=== PATIENT | female | born 1975 | race Caucasian/White ===

== ENCOUNTER 2023-06-02 00:32 | Day surgery (SDC) | payer OTHER, SELFPAY ==
[2023-05-23 14:48] VITALS: BMI 21.5
[2023-06-02 09:52] VITALS: BP 108/71; PULSE 77; RESP 18; TEMP 36.7; O2SAT 100
[2023-06-02] MEDS: LACTATED RINGERS 1,000 ML 150 ML IV CONT (10:11)
--- NOTE | 2023-06-02 10:32 | WPDANESEPPF ---
Anes - Initial Pre Proc Eval Procedure: Operation Date: 06/02/23 11:00 Proposed Procedures p Screening Colonoscopy - Kevin Parr MD Date/Time: 06/02/23 10:32 Surgeon: Kevin Parr MD Pre Op Diagnosis: neoplasm screening Patient Data Age: 48 Gender: F Height: 1.52 m Weight: 51 kg Last Vital Signs Temp 98.1 F 06/02/23 09:52 Pulse 77 06/02/23 09:52 Resp 18 06/02/23 09:52 BP 108/71 06/02/23 09:52 Pulse Ox 100 06/02/23 09:52 O2 Del Method Room Air 06/02/23 09:52 Allergies Allergy/AdvReac Type Severity Reaction Status Date / Time No Known Allergies Allergy Verified 06/02/23 09:51 Home Medications Medication Instructions Recorded Confirmed Type cetirizine 10 mg tablet (Zyrtec) 10 mg PO DAILY PRN Allergic 06/26/21 05/23/23 History Symptoms ibuprofen 400 mg tablet 400 mg PO Q6H 06/26/21 05/23/23 History Laboratory Tests 06/02/23 10:02 Serum HCG, Qual Pending Patient hx anesthesia problems: none Family hx anesthesia problems: none Results Review: All pre-operative results and documents have been reviewed as part of the pre-operative evaluation. FORMERLY [facility], [facility]1983 Past Medical History Medical History Radial scar of breast Family History Family History Mother Patient's mother is in good health Father Patient's father is in good health Sibling Patient's brother is in good health Social History Social History Smoking status: Never smoker Second hand tobacco smoke exposure: No Smoking end date: 08/18/00 Alcohol intake: current Alcohol use details: Socially Substance use: unknown Substance use type: does not use Lack of Transportation: No Lack of Food: Never True Current Housing: I Have Housing Concerned About Future Housing: No Difficulty Paying Gas/Electric Bills: No Difficulty Paying for Meds: No Currently Unemployed: No Education: Master's Degree or Higher Difficulty w/ Childcare or Family Care: No Living arrangements: other Additional living arrangements comments: with dayne Toscano Final PreProcedure Day of Procedure 06/02/23 10:32 Patient weight: normal Heart: regular rate and rhythm Lungs: clear to auscultation Airway: Mallampati scale class II Neurological: alert and oriented Last oral intake: >/= 8 hours ASA classification: II Emergent: no Anesthetic plan: proceed Anesthesia type and monitoring: general GIVS and standard monitoring Results Review: All pre-operative results and documents have been reviewed as part of the pre-operative evaluation. Informed Consent: The patient's anesthetic plan and its attendant risks and benefits were discussed with the patient/family/POA. Questions were solicited and answers provided to the satisfaction of the patient/family/POA.
[2023-06-02 10:41] LABS: SPREG INTERNAL CONTROL Positive; Serum Qual hCG Negative
--- NOTE | 2023-06-02 11:08 | PM.HPGS ---
History of Present Illness History of Present Illness Consent: Risks, benefits, and alternatives have been discussed and questions answered. Patient agrees to proceed with procedure. Chief complaint: neoplasm screening Narrative: Gloria Haines is a 48 year old female here for screening colonoscopy Review of Systems Constitutional: Constitutional: Denies headache(s) and Denies weakness Eyes: Eyes: Denies blurry vision ENT: Reports Normal hearing present, Denies headache(s) and Denies neck pain Cardiovascular: Cardiovascular: Denies chest pain and Denies dyspnea Respiratory: Respiratory: Denies dyspnea Gastrointestinal: Gastrointestinal: Reports no additional gastrointestinal complaints Genitourinary: Genitourinary: Denies dysuria Musculoskeletal: Musculoskeletal: Denies neck pain Integumentary/Breasts: Skin/Breast: Denies dry skin Neurologic: Reports Normal hearing present, Denies headache(s) and Denies weakness Psychiatric: Psychiatric: Denies anxiety Endocrine: Endocrine: Denies change in body appearance Hematologic/Lymphatic: Hematologic/Lymphatic: Denies easy bleeding Allergic/Immunologic: Allergic/Immunologic: Denies urticaria [facility] Past Medical History Medical History (Updated 06/02/23 @ 11:08 by Kevin Parr MD) Colon cancer screening Radial scar of breast Family History Family History Mother Patient's mother is in good health Father Patient's father is in good health Sibling Patient's brother is in good health Social History Social History Smoking status: Never smoker Second hand tobacco smoke exposure: No Smoking end date: 08/18/00 Alcohol intake: current Alcohol use details: Socially Substance use: unknown Substance use type: does not use Lack of Transportation: No Lack of Food: Never True Current Housing: I Have Housing Concerned About Future Housing: No Difficulty Paying Gas/Electric Bills: No Difficulty Paying for Meds: No Currently Unemployed: No Education: Master's Degree or Higher Difficulty w/ Childcare or Family Care: No Living arrangements: other Additional living arrangements comments: with sp Meds Home Medications and Allergies Home Medications Medication Instructions Recorded Confirmed Type cetirizine 10 mg tablet (Zyrtec) 10 mg PO DAILY PRN Allergic 11/09/21 10/06/23 History Symptoms ibuprofen 400 mg tablet 400 mg PO Q6H 06/26/21 05/23/23 History Allergies Allergy/AdvReac Type Severity Reaction Status Date / Time No Known Allergies Allergy Verified 06/02/23 09:51 Vital Signs Vital Signs - 24 hr 06/02/23 09:52 Temperature 98.1 F Pulse Rate 77 Respiratory Rate 18 Blood Pressure 108/71 Pulse Oximetry 100 Oxygen Delivery Room Air Exam Const: General: comfortable and no acute distress HENMT: Face/Nose/Sinus: Normal nares present Eyes: General: appearance normal, both eyes and all related structures Neck: Neck: no JVD Resp: Auscultation: clear to auscultation bilaterally Cardio: Rate: regular rate Rhythm: regular rhythm GI: Inspection: non-distended GI Palp: Yes Soft to palpation Skin: General skin exam: normal color Neuro: General: gait normal Speech: normal speech Extrem: General: normal to inspection Psych: Mental Status: mental status grossly normal Assessment and Plan Assessment and plan (1) Colon cancer screening: Code(s): Z12.11 - Encounter for screening for malignant neoplasm of colon Status: Acute Assessment and Plan: colonoscopy
[2023-06-02 11:28] VITALS: BP 96/59; PULSE 70; RESP 20; O2SAT 100
[2023-06-02 11:38] VITALS: BP 105/67; PULSE 75; RESP 20; O2SAT 100
[2023-06-02 11:48] VITALS: BP 110/68; PULSE 77; RESP 20; O2SAT 100
== END 2023-06-02 11:52 | disposition home or self-care (01) ==
PROVIDERS: Anesthesiology; PCP Internal Medicine; Visit Provider Internal Medicine Gastroenterology
PROC: 0DJD8ZZ Inspection of Lower Intestinal Tract, Via Natural or Artificial Opening Endoscopic (ICD-10-PCS; CPT 45378; principal; 2023-06-02 11:00)
DX: Z12.11 Encounter for screening for malignant neoplasm of colon (principal); K64.8 Other hemorrhoids
CPT/HCPCS: 45378; 36415; 84703; J2704; J7120